=== PATIENT | female | born 1980 | race African-American/Black ===

== ENCOUNTER 2023-08-08 08:00 | Inpatient (IN) | payer OTHER ==
[2023-08-03 13:54] VITALS: BMI 34.1
[2023-09-05] MEDS ORDERED: VANCOMYCIN 1,000 MG VIAL (RESTRICTED TO ID ONLY) ONE ×2 (07:13→11:25)
[2023-09-05] MEDS ORDERED: THROMBIN (BOVINE) 5,000 UNIT VIAL TP ONE ×4 (07:14→11:45)
[2023-09-05] MEDS ORDERED: BUPIVACAINE HCL/PF 0.5% (5MG/ML) 10 ML VIAL ONE (07:14)
[2023-09-05] MEDS ORDERED: GENTAMICIN SO4 80 MG/2 ML VIAL ONE (07:14)
[2023-09-05] MEDS ORDERED: BUPIVACAINE LIPOSOME/PF (EXPAREL) 266 MG/20 ML VIAL ONE (07:14)
[2023-09-05] MEDS ORDERED: VANCOMYCIN 1 GM in D5W (PRE-DOCKED) 1,000 MG/250 ML (RESTRICTED TO ID ONLY IVPB ONE ×4 (07:22→13:24)
[2023-09-05] MEDS ORDERED: LIDOCAINE 1%/EPI 1:100000 (20 ML MULTI DOSE VIAL) IJ ONE ×2 (07:22→09:12)
[2023-09-05] MEDS ORDERED: ceFAZolin SODIUM 1 GM VIAL IVPB ONE ×3 (07:22→13:00)
[2023-09-05] MEDS ORDERED: MIDAZOLAM HCL 2 MG/2 ML SINGLE DOSE VIAL ONE (07:40)
[2023-09-05] MEDS ORDERED: FENTANYL CITRATE/PF 50 MCG/ML VIAL ONE (07:40)
[2023-09-05] MEDS ORDERED: PROPOFOL 20 ML ONE (07:40)
[2023-09-05] MEDS ORDERED: ROCURONIUM BROMIDE 50 MG/5 ML SYRINGE ONE ×3 (07:40→12:20)
[2023-09-05] MEDS ORDERED: SUCCINYLCHOLINE CHLORIDE 200 MG/10 ML SYRINGE ONE (07:40)
[2023-09-05] MEDS ORDERED: GENTAMICIN SO4 80 MG/2 ML VIAL IVPB ONE ×2 (07:56→10:00)
[2023-09-05] MEDS ORDERED: BENZOIN/ALOE VERA/STORAX/TOLU 58 ML BOTTLE ONE (08:56)
[2023-09-05] MEDS ORDERED: HYDROGEN PEROXIDE 473 ML PO ONE (10:00)
[2023-09-05] MEDS ORDERED: BUPIVACAINE LIPOSOME/PF (EXPAREL) 266 MG/20 ML VIAL NR ONE ×2 (11:07→13:30)
[2023-09-05] MEDS ORDERED: BUPIVACAINE HCL/PF 0.5% (5MG/ML) 10 ML VIAL IJ ONE ×2 (11:07→13:30)
[2023-09-05] MEDS ORDERED: PHENYLEPHRINE HCL 10 MG/1 ML SINGLE DOSE VIAL ONE (11:11)
[2023-09-05] MEDS ORDERED: KETOROLAC TROMETHAMINE 30 MG/1 ML VIAL ONE (11:25)
[2023-09-05] MEDS ORDERED: GLYCOPYRROLATE 0.2 MG/1 ML VIAL ONE ×2 (11:25)
[2023-09-05] MEDS ORDERED: NEOSTIGMINE METHYLSULFATE 0.5 MG/1 ML - 10 ML MDV ONE (11:25)
[2023-09-05] MEDS ORDERED: DEXAMETHASONE SOD PHOSPHATE 4 MG/1 ML VIAL ONE (11:25)
[2023-09-05] MEDS ORDERED: ONDANSETRON 4 MG/2 ML VIAL ONE (11:25)
[2023-09-05] MEDS ORDERED: TRANEXAMIC ACID 1000 MG/10 ML VIAL ONE (11:25)
[2023-09-05] MEDS ORDERED: ceFAZolin SODIUM 1 GM VIAL ONE ×2 (11:25)
[2023-09-05] MEDS ORDERED: ONDANSETRON 4 MG/2 ML VIAL IVPUSH PRN ×2 (14:39→14:52)
[2023-09-05] MEDS ORDERED: LACTATED RINGERS SOLUTION 1,000 ML/1,000 ML INFUS.BAG IV SCH ×2 (14:45→15:09)
[2023-09-05] MEDS ORDERED: oxyCODONE HCL 5 MG TABLET PO PRN (14:52)
[2023-09-05] MEDS: ACETAMINOPHEN 1000 MG/100 ML BAG IVPB SCH ×2 (15:31→21:20)
[2023-09-05] MEDS ORDERED: ACETAMINOPHEN INJECTION 100 ML IVPB ONE (16:28)
[2023-09-05 16:43] LABS: BASO % 0.1 % (0-2.0); EOS % 0.1 % (0-4.5); HEMOGLOBIN 10.6 GM/dL (10.7-15.3); MCH 23.5 pg (25.7-33.7); MCHC 33.2 g/dl (32.0-36.0); MEAN CELL VOLUME 70.6 fl (80-96); MEAN PLT VOLUME 8.2 fl (7.5-11.1); NEUT % 89.8 % (42.8-82.8); PLATELET COUNT 281 10^3/uL (134-434); RBC 4.53 M/mm3 (3.60-5.2); RDW 20.4 % (11.6-15.6); WHITE BLOOD COUNT 8.4 K/mm3 (4.0-10.0)
[2023-09-05 16:56] LABS: POTASSIUM 4.7 mmol/L (3.5-5.1)
[2023-09-05 16:57] LABS: CALCIUM 7.8 mg/dL (8.5-10.1)
[2023-09-05 16:58] LABS: BLOOD UREA NITROGEN 12.6 mg/dL (7-18)
[2023-09-05 17:01] LABS: CREATININE 1.1 mg/dL (0.55-1.3)
[2023-09-05] MEDS: diphenhydrAMINE HCL 25 MG CAPSULE (FP) PO PRN (18:28)
[2023-09-05] MEDS ORDERED: diphenhydrAMINE HCL 25 MG CAPSULE (FP) PO ONE (20:26)
[2023-09-05] MEDS ORDERED: METOCLOPRAMIDE HCL INJECTION 10 MG/2 ML VIAL IVPUSH ONE (20:39)
[2023-09-05] MEDS: HEPARIN NA (PORCINE) 5,000 UNITS/ML 1ML VIAL SQ SCH (22:33)
[2023-09-05] MEDS: CEFAZOLIN SODIUM 2 GM in DEXTROSE 5%-WATER - 50 ML IVPB SCH (22:33)
[2023-09-06] MEDS: ACETAMINOPHEN 1000 MG/100 ML BAG IVPB SCH ×2 (02:06→09:52)
[2023-09-06] MEDS: CEFAZOLIN SODIUM 2 GM in DEXTROSE 5%-WATER - 50 ML IVPB SCH ×3 (05:17→21:12)
[2023-09-06] MEDS: HEPARIN NA (PORCINE) 5,000 UNITS/ML 1ML VIAL SQ SCH ×3 (06:39→21:14)
[2023-09-06 07:04] LABS: HEMATOCRIT 30.2 % (32.4-45.2); HEMOGLOBIN 9.7 GM/dL (10.7-15.3); MCH 22.8 pg (25.7-33.7); MCHC 32.1 g/dl (32.0-36.0); MEAN CELL VOLUME 71.1 fl (80-96); MEAN PLT VOLUME 8.6 fl (7.5-11.1); PLATELET COUNT 216 10^3/uL (134-434); RBC 4.25 M/mm3 (3.60-5.2); RDW 20.4 % (11.6-15.6); WHITE BLOOD COUNT 9.6 K/mm3 (4.0-10.0)
[2023-09-06 07:23] LABS: POTASSIUM 4.2 mmol/L (3.5-5.1)
[2023-09-06 07:29] LABS: BLOOD UREA NITROGEN 12.7 mg/dL (7-18); CALCIUM 7.5 mg/dL (8.5-10.1)
[2023-09-06] MEDS: LACTATED RINGERS SOLUTION 1,000 ML/1,000 ML INFUS.BAG IV SCH (13:35)
[2023-09-06] MEDS: oxyCODONE HCL 5 MG TABLET PO PRN ×2 (16:18→21:13)
[2023-09-06] MEDS: ACETAMINOPHEN 500 MG TABLET (FP) PO SCH ×2 (17:20→21:13)
[2023-09-07] MEDS: oxyCODONE HCL 5 MG TABLET PO PRN ×4 (00:39→21:36)
[2023-09-07] MEDS: diphenhydrAMINE HCL 25 MG CAPSULE (FP) PO PRN (00:40)
[2023-09-07] MEDS: ACETAMINOPHEN 500 MG TABLET (FP) PO SCH ×5 (05:48→19:55)
[2023-09-07] MEDS: CEFAZOLIN SODIUM 2 GM in DEXTROSE 5%-WATER - 50 ML IVPB SCH ×3 (05:49→21:32)
[2023-09-07] MEDS: HEPARIN NA (PORCINE) 5,000 UNITS/ML 1ML VIAL SQ SCH ×3 (05:49→21:33)
[2023-09-07] MEDS ORDERED: HYDROmorphone HCl 2 MG/ML VIAL IVPUSH ONE (08:30)
[2023-09-07 10:00] LABS: BASO % 0.3 % (0-2.0); EOS % 0.1 % (0-4.5); HEMATOCRIT 27.2 % (32.4-45.2); HEMOGLOBIN 8.8 GM/dL (10.7-15.3); LYMPH % 12.2 % (8-40); MCHC 32.2 g/dl (32.0-36.0); MEAN CELL VOLUME 71.5 fl (80-96); MEAN PLT VOLUME 8.4 fl (7.5-11.1); MONO % 6.5 % (3.8-10.2); NEUT % 80.9 % (42.8-82.8); PLATELET COUNT 253 10^3/uL (134-434); RBC 3.81 M/mm3 (3.60-5.2); RDW 20.4 % (11.6-15.6); WHITE BLOOD COUNT 11.1 K/mm3 (4.0-10.0)
[2023-09-07 10:18] LABS: POTASSIUM 3.6 mmol/L (3.5-5.1)
[2023-09-07] MEDS: FERROUS SO4 325 MG TABLET (FP) PO SCH (10:19)
[2023-09-07] MEDS: FOLIC ACID 1 MG TABLET (FP) PO SCH (10:19)
[2023-09-07 10:20] LABS: ALBUMIN 2.6 g/dl (3.4-5.0); BLOOD UREA NITROGEN 10.5 mg/dL (7-18); CALCIUM 7.8 mg/dL (8.5-10.1)
[2023-09-07 10:23] LABS: CREATININE 0.8 mg/dL (0.55-1.3)
[2023-09-07] MEDS: amLODIPine BESYLATE 5 MG TABLET (FP) PO SCH (10:24)
[2023-09-07 10:25] LABS: BILIRUBIN,TOTAL 0.4 mg/dL (0.2-1); TOT PROT 6.4 g/dl (6.4-8.2)
[2023-09-07] MEDS: LACTATED RINGERS SOLUTION 1,000 ML/1,000 ML INFUS.BAG IV SCH (11:20)
[2023-09-07] MEDS ORDERED: HYDROmorphone HCl 2 MG/ML VIAL IVPB ONE (15:43)
[2023-09-07] MEDS ORDERED: GLYCERIN 1 RECTAL SUPPOSITORY, ADULT RC PRN (15:43)
[2023-09-07] MEDS: DOCUSATE SODIUM 100 MG CAPSULE (FP) PO PRN (16:58)
[2023-09-07] MEDS: BACLOFEN 10 MG TABLET (FP) PO PRN (16:58)
[2023-09-07] MEDS: POLYETHYLENE GLYCOL (HEALTHYLAX) 3350 17 GM PACKET PO SCH (21:32)
[2023-09-08] MEDS: ACETAMINOPHEN 500 MG TABLET (FP) PO SCH ×5 (01:25→17:49)
[2023-09-08] MEDS: BACLOFEN 10 MG TABLET (FP) PO PRN (01:45)
[2023-09-08] MEDS: oxyCODONE HCL 5 MG TABLET PO PRN ×3 (03:32→18:24)
[2023-09-08] MEDS: CEFAZOLIN SODIUM 2 GM in DEXTROSE 5%-WATER - 50 ML IVPB SCH ×3 (06:11→22:51)
[2023-09-08] MEDS: HEPARIN NA (PORCINE) 5,000 UNITS/ML 1ML VIAL SQ SCH ×3 (06:11→17:20)
[2023-09-08] MEDS: amLODIPine BESYLATE 5 MG TABLET (FP) PO SCH (10:52)
[2023-09-08] MEDS: FERROUS SO4 325 MG TABLET (FP) PO SCH (10:52)
[2023-09-08] MEDS: FOLIC ACID 1 MG TABLET (FP) PO SCH (10:52)
[2023-09-08] MEDS: POLYETHYLENE GLYCOL (HEALTHYLAX) 3350 17 GM PACKET PO SCH ×3 (10:52→22:52)
[2023-09-08] MEDS: LACTATED RINGERS SOLUTION 1,000 ML/1,000 ML INFUS.BAG IV SCH ×2 (12:18→17:32)
[2023-09-08] MEDS: DOCUSATE SODIUM 100 MG CAPSULE (FP) PO PRN (12:28)
[2023-09-08] MEDS: DOCUSATE SODIUM 100 MG CAPSULE (FP) PO SCH ×2 (14:43→22:52)
[2023-09-08] MEDS: SODIUM PHOSPHATE/NA BIPHOS 133 ML ENEMA RC PRN (15:30)
[2023-09-08 15:31] LABS: BASO % 0.5 % (0-2.0); EOS % 0.9 % (0-4.5); HEMOGLOBIN 10.3 GM/dL (10.7-15.3); LYMPH % 15.1 % (8-40); MCH 23.2 pg (25.7-33.7); MCHC 33.2 g/dl (32.0-36.0); MEAN CELL VOLUME 69.8 fl (80-96); MEAN PLT VOLUME 8.3 fl (7.5-11.1); NEUT % 76.5 % (42.8-82.8); PLATELET COUNT 350 10^3/uL (134-434); RBC 4.44 M/mm3 (3.60-5.2); RDW 20.4 % (11.6-15.6); WHITE BLOOD COUNT 11.9 K/mm3 (4.0-10.0)
[2023-09-08 16:00] LABS: POTASSIUM 3.5 mmol/L (3.5-5.1)
[2023-09-08 16:03] LABS: ALBUMIN 3.1 g/dl (3.4-5.0); BLOOD UREA NITROGEN 5.1 mg/dL (7-18)
[2023-09-08 16:06] LABS: CREATININE 0.7 mg/dL (0.55-1.3)
[2023-09-08 16:07] LABS: TOT PROT 7.8 g/dl (6.4-8.2)
[2023-09-08 16:08] LABS: BILIRUBIN,TOTAL 0.6 mg/dL (0.2-1)
[2023-09-08 16:11] LABS: CALCIUM 9.1 mg/dL (8.5-10.1)
[2023-09-08] MEDS ORDERED: diphenhydrAMINE HCL 25 MG CAPSULE (FP) PO PRN (16:51)
[2023-09-08] MEDS ORDERED: ONDANSETRON 4 MG/2 ML VIAL IVPUSH PRN (16:51)
[2023-09-08] MEDS ORDERED: GLYCERIN 1 RECTAL SUPPOSITORY, ADULT RC PRN (16:51)
[2023-09-09] MEDS: oxyCODONE HCL 5 MG TABLET PO PRN ×3 (00:34→17:10)
[2023-09-09] MEDS: ACETAMINOPHEN 500 MG TABLET (FP) PO SCH ×5 (00:36→21:57)
[2023-09-09] MEDS: HEPARIN NA (PORCINE) 5,000 UNITS/ML 1ML VIAL SQ SCH ×3 (01:23→17:45)
[2023-09-09] MEDS: CEFAZOLIN SODIUM 2 GM in DEXTROSE 5%-WATER - 50 ML IVPB SCH ×3 (05:49→21:57)
[2023-09-09] MEDS: DOCUSATE SODIUM 100 MG CAPSULE (FP) PO SCH ×3 (05:50→21:58)
[2023-09-09] MEDS: POLYETHYLENE GLYCOL (HEALTHYLAX) 3350 17 GM PACKET PO SCH ×3 (05:56→21:59)
[2023-09-09 10:13] LABS: BASO % 0.6 % (0-2.0); EOS % 2.1 % (0-4.5); HEMATOCRIT 29.9 % (32.4-45.2); HEMOGLOBIN 9.7 GM/dL (10.7-15.3); LYMPH % 24.4 % (8-40); MCHC 32.4 g/dl (32.0-36.0); MEAN CELL VOLUME 71.2 fl (80-96); MEAN PLT VOLUME 7.9 fl (7.5-11.1); MONO % 7.1 % (3.8-10.2); NEUT % 65.8 % (42.8-82.8); PLATELET COUNT 356 10^3/uL (134-434); RBC 4.21 M/mm3 (3.60-5.2); RDW 20.4 % (11.6-15.6); WHITE BLOOD COUNT 9.6 K/mm3 (4.0-10.0)
[2023-09-09] MEDS: FOLIC ACID 1 MG TABLET (FP) PO SCH (10:33)
[2023-09-09] MEDS: FERROUS SO4 325 MG TABLET (FP) PO SCH (10:33)
[2023-09-09] MEDS: amLODIPine BESYLATE 5 MG TABLET (FP) PO SCH (10:33)
[2023-09-09] MEDS: SIMETHICONE 80 MG TAB.CHEW (FP) PO PRN ×2 (14:39→17:11)
[2023-09-09] MEDS: LACTATED RINGERS SOLUTION 1,000 ML/1,000 ML INFUS.BAG IV SCH (17:28)
[2023-09-10] MEDS: oxyCODONE HCL 5 MG TABLET PO PRN ×4 (02:50→23:14)
[2023-09-10] MEDS: HEPARIN NA (PORCINE) 5,000 UNITS/ML 1ML VIAL SQ SCH ×3 (02:51→17:58)
[2023-09-10] MEDS: CEFAZOLIN SODIUM 2 GM in DEXTROSE 5%-WATER - 50 ML IVPB SCH ×3 (05:24→21:30)
[2023-09-10] MEDS: ACETAMINOPHEN 500 MG TABLET (FP) PO SCH ×3 (05:24→21:31)
[2023-09-10] MEDS: DOCUSATE SODIUM 100 MG CAPSULE (FP) PO SCH ×3 (05:26→21:31)
[2023-09-10] MEDS: POLYETHYLENE GLYCOL (HEALTHYLAX) 3350 17 GM PACKET PO SCH ×3 (05:26→21:31)
[2023-09-10] MEDS: amLODIPine BESYLATE 5 MG TABLET (FP) PO SCH (09:44)
[2023-09-10] MEDS: FOLIC ACID 1 MG TABLET (FP) PO SCH (09:44)
[2023-09-10] MEDS: FERROUS SO4 325 MG TABLET (FP) PO SCH (11:45)
[2023-09-10] MEDS ORDERED: ACETAMINOPHEN 1000 MG/100 ML BAG IVPB ONE (19:57)
[2023-09-11] MEDS: HEPARIN NA (PORCINE) 5,000 UNITS/ML 1ML VIAL SQ SCH ×3 (01:57→18:29)
[2023-09-11] MEDS: CEFAZOLIN SODIUM 2 GM in DEXTROSE 5%-WATER - 50 ML IVPB SCH ×2 (05:35→14:00)
[2023-09-11] MEDS: oxyCODONE HCL 5 MG TABLET PO PRN ×2 (05:35→16:27)
[2023-09-11] MEDS: POLYETHYLENE GLYCOL (HEALTHYLAX) 3350 17 GM PACKET PO SCH ×3 (05:37→21:51)
[2023-09-11] MEDS: DOCUSATE SODIUM 100 MG CAPSULE (FP) PO SCH ×3 (05:37→21:50)
[2023-09-11] MEDS ORDERED: MAGNESIUM HYDROX 2400MG/30ML ORAL SUSPENSION 30 ML CUP PO PRN (08:00)
[2023-09-11] MEDS: FOLIC ACID 1 MG TABLET (FP) PO SCH (09:37)
[2023-09-11] MEDS: amLODIPine BESYLATE 5 MG TABLET (FP) PO SCH (09:37)
[2023-09-11] MEDS: FERROUS SO4 325 MG TABLET (FP) PO SCH (09:41)
[2023-09-11] MEDS ORDERED: METHYLNALTREXONE BROMIDE 8 MG/0.4 ML SYRINGE SQ ONE (10:00)
[2023-09-11] MEDS: SODIUM PHOSPHATE/NA BIPHOS 133 ML ENEMA RC PRN (13:59)
[2023-09-11] MEDS: SIMETHICONE 80 MG TAB.CHEW (FP) PO PRN (14:12)
[2023-09-11] MEDS: BACLOFEN 10 MG TABLET (FP) PO PRN ×2 (16:27→21:50)
[2023-09-11] MEDS: ACETAMINOPHEN 500 MG TABLET (FP) PO SCH (19:32)
[2023-09-12] MEDS: HEPARIN NA (PORCINE) 5,000 UNITS/ML 1ML VIAL SQ SCH ×3 (01:55→18:45)
[2023-09-12] MEDS: POLYETHYLENE GLYCOL (HEALTHYLAX) 3350 17 GM PACKET PO SCH ×4 (05:53→21:47)
[2023-09-12] MEDS: DOCUSATE SODIUM 100 MG CAPSULE (FP) PO SCH ×3 (05:53→21:47)
[2023-09-12] MEDS: oxyCODONE HCL 5 MG TABLET PO PRN (09:33)
[2023-09-12] MEDS: FOLIC ACID 1 MG TABLET (FP) PO SCH (09:34)
[2023-09-12] MEDS: FERROUS SO4 325 MG TABLET (FP) PO SCH ×2 (09:34→09:38)
[2023-09-12] MEDS: amLODIPine BESYLATE 5 MG TABLET (FP) PO SCH (09:34)
[2023-09-12] MEDS: Methylnaltrexone Bromide 12 MG/0.6 ML KIT SQ SCH (09:34)
[2023-09-12 10:05] LABS: HEMATOCRIT 29.9 % (32.4-45.2); HEMOGLOBIN 9.9 GM/dL (10.7-15.3); MCH 23.6 pg (25.7-33.7); MEAN CELL VOLUME 71.5 fl (80-96); MEAN PLT VOLUME 7.5 fl (7.5-11.1); PLATELET COUNT 495 10^3/uL (134-434); RBC 4.18 M/mm3 (3.60-5.2); RDW 19.8 % (11.6-15.6); WHITE BLOOD COUNT 9.8 K/mm3 (4.0-10.0)
[2023-09-12 10:29] LABS: POTASSIUM 3.9 mmol/L (3.5-5.1)
[2023-09-12 10:33] LABS: CALCIUM 8.9 mg/dL (8.5-10.1)
[2023-09-12 10:34] LABS: ALBUMIN 2.9 g/dl (3.4-5.0); BLOOD UREA NITROGEN 9.3 mg/dL (7-18); MAGNESIUM 2.2 mg/dL (1.8-2.4)
[2023-09-12 10:37] LABS: CREATININE 0.8 mg/dL (0.55-1.3)
[2023-09-12 10:38] LABS: BILIRUBIN,TOTAL 0.4 mg/dL (0.2-1); TOT PROT 7.5 g/dl (6.4-8.2)
[2023-09-12] MEDS: BACLOFEN 10 MG TABLET (FP) PO PRN (13:28)
[2023-09-13] MEDS: oxyCODONE HCL 5 MG TABLET PO PRN ×3 (00:50→21:30)
[2023-09-13] MEDS: HEPARIN NA (PORCINE) 5,000 UNITS/ML 1ML VIAL SQ SCH ×3 (01:35→18:27)
[2023-09-13] MEDS: POLYETHYLENE GLYCOL (HEALTHYLAX) 3350 17 GM PACKET PO SCH ×4 (05:46→22:33)
[2023-09-13] MEDS: DOCUSATE SODIUM 100 MG CAPSULE (FP) PO SCH ×3 (05:46→22:33)
[2023-09-13] MEDS: amLODIPine BESYLATE 5 MG TABLET (FP) PO SCH (09:48)
[2023-09-13] MEDS: FERROUS SO4 325 MG TABLET (FP) PO SCH (09:48)
[2023-09-13] MEDS: FOLIC ACID 1 MG TABLET (FP) PO SCH (09:48)
[2023-09-13] MEDS: Methylnaltrexone Bromide 12 MG/0.6 ML KIT SQ SCH (09:49)
[2023-09-13 22:56] VITALS: RESP 20
[2023-09-14] MEDS: HEPARIN NA (PORCINE) 5,000 UNITS/ML 1ML VIAL SQ SCH ×2 (02:53→09:16)
[2023-09-14] MEDS: oxyCODONE HCL 5 MG TABLET PO PRN (04:24)
[2023-09-14] MEDS: BACLOFEN 10 MG TABLET (FP) PO PRN (04:28)
[2023-09-14] MEDS: DOCUSATE SODIUM 100 MG CAPSULE (FP) PO SCH (05:44)
[2023-09-14] MEDS: POLYETHYLENE GLYCOL (HEALTHYLAX) 3350 17 GM PACKET PO SCH (05:45)
[2023-09-14] MEDS: Methylnaltrexone Bromide 12 MG/0.6 ML KIT SQ SCH (09:12)
[2023-09-14] MEDS: FERROUS SO4 325 MG TABLET (FP) PO SCH (09:12)
[2023-09-14] MEDS: amLODIPine BESYLATE 5 MG TABLET (FP) PO SCH (09:16)
[2023-09-14] MEDS: FOLIC ACID 1 MG TABLET (FP) PO SCH (09:16)
[2023-09-14 10:35] VITALS: BP 138/85; PULSE 101; TEMP 97.8
== END 2023-09-14 10:42 | DRG 304 ==
LOC: J2C 09-05 07:09 → J4W 09-05 18:16 → J8W 09-08 16:30
PROVIDERS: ADMIT Family Medicine; ATTEND Family Medicine
PROC: 0SG10AJ Fusion of 2 or more Lumbar Vertebral Joints with Interbody Fusion Device, Posterior Approach, Anterior Column, Open Approach (ICD-10-PCS; principal; 2023-09-07)
PROC: 0SG1071 Fusion of 2 or more Lumbar Vertebral Joints with Autologous Tissue Substitute, Posterior Approach, Posterior Column, Open Approach (ICD-10-PCS; 2023-09-07)
PROC: 0ST20ZZ Resection of Lumbar Vertebral Disc, Open Approach (ICD-10-PCS; 2023-09-07)
PROC: 0SG30AJ Fusion of Lumbosacral Joint with Interbody Fusion Device, Posterior Approach, Anterior Column, Open Approach (ICD-10-PCS; 2023-09-07)
PROC: 0SG3071 Fusion of Lumbosacral Joint with Autologous Tissue Substitute, Posterior Approach, Posterior Column, Open Approach (ICD-10-PCS; 2023-09-07)
PROC: 0ST40ZZ Resection of Lumbosacral Disc, Open Approach (ICD-10-PCS; 2023-09-07)
PROC: 4A10X4G Monitoring of Central Nervous Electrical Activity, Intraoperative, External Approach (ICD-10-PCS; 2023-09-07)
DX: M51.36 Other intervertebral disc degeneration, lumbar region (principal); M51.37 Other intervertebral disc degeneration, lumbosacral region; I10 Essential (primary) hypertension
CPT/HCPCS: 36415; 36430; 72131-TC; 76000-TC-FY; 80048; 80053; 81025; 82962; 83735; 85025; 85027; 86850; 86900; 86901; 86922; 87635; 93971-TC; 94760; 97116-GP; 97162-GP; C1713; C1889; J0475; J1644; P9058

== ENCOUNTER 2024-06-09 17:23 | Emergency (ER) | payer OTHER ==
[2024-06-09 17:41] VITALS: BMI 36.6
[2024-06-09] MEDS ORDERED: MIDAZOLAM HCL 2 MG/2 ML SINGLE DOSE VIAL IVPUSH ONE (17:48)
[2024-06-09] MEDS ORDERED: METOCLOPRAMIDE HCL 10 MG TABLET (FP) PO ONE (18:46)
[2024-06-09] MEDS ORDERED: ACETAMINOPHEN INJECTION 100 ML IVPB ONE (18:46)
[2024-06-09] MEDS ORDERED: METOCLOPRAMIDE HCL INJECTION 10 MG/2 ML VIAL ONE (18:47)
[2024-06-09] MEDS: ACETAMINOPHEN 1000 MG/100 ML BAG IVPB ONE (19:00)
[2024-06-09] MEDS: METOCLOPRAMIDE HCL INJECTION 10 MG/2 ML VIAL IVPB ONE (19:01)
[2024-06-09 19:02] LABS: BASO % 0.6 % (0-2.0); EOS % 1.7 % (0-4.5); HEMATOCRIT 33.8 % (32.4-45.2); HEMOGLOBIN 10.7 GM/dL (10.7-15.3); LYMPH % 25.5 % (8-40); MCH 20.1 pg (25.7-33.7); MCHC 31.6 g/dl (32.0-36.0); MEAN CELL VOLUME 63.7 fl (80-96); MEAN PLT VOLUME 8.5 fl (7.5-11.1); NEUT % 63.2 % (42.8-82.8); PLATELET COUNT 362 10^3/uL (134-434); RBC 5.32 M/mm3 (3.60-5.2); RDW 20.4 % (11.6-15.6); WHITE BLOOD COUNT 7.8 K/mm3 (4.0-10.0)
[2024-06-09] MEDS: SODIUM CHLORIDE 0.9% 500 ML INFUS.BAG IV ONE (19:05)
[2024-06-09 19:24] LABS: CALCIUM 8.9 mg/dL (8.5-10.1); POTASSIUM 4.8 mmol/L (3.5-5.1)
[2024-06-09 19:25] LABS: ALBUMIN 3.4 g/dl (3.4-5.0); BLOOD UREA NITROGEN 16.5 mg/dL (7-18)
[2024-06-09 19:28] LABS: CREATININE 0.9 mg/dL (0.55-1.3)
[2024-06-09 19:29] LABS: TOT PROT 7.7 g/dl (6.4-8.2)
[2024-06-09 19:30] LABS: BILIRUBIN,TOTAL 0.3 mg/dL (0.2-1)
[2024-06-09] MEDS: LIDOCAINE HCL 1%, 10 MG/ML (50 mL VIAL) SQ ONE (19:41)
[2024-06-09] MEDS ORDERED: PROCHLORPERAZINE INJECTION 10 MG/2 ML VIAL ONE (19:46)
[2024-06-09] MEDS: PROCHLORPERAZINE INJECTION 10 MG/2 ML VIAL IVPB ONE (20:22)
[2024-06-09] MEDS: KETOROLAC TROMETHAMINE 30 MG/1 ML VIAL IVPUSH ONE (21:58)
[2024-06-09] MEDS ORDERED: KETOROLAC TROMETHAMINE 30 MG/1 ML VIAL ONE (21:59)
[2024-06-09 22:09] VITALS: BP 135/80; PULSE 61; RESP 18; TEMP 98.2
== END 2024-06-09 22:10 | disposition home or self-care (01) ==
LOC: JER 17:23
PROC: 3E033NZ Introduction of Analgesics, Hypnotics, Sedatives into Peripheral Vein, Percutaneous Approach (ICD-10-PCS; principal; 2024-06-09)
PROC: 3E0333Z Introduction of Anti-inflammatory into Peripheral Vein, Percutaneous Approach (ICD-10-PCS; 2024-06-09)
PROC: 3E033GC Introduction of Other Therapeutic Substance into Peripheral Vein, Percutaneous Approach (ICD-10-PCS; 2024-06-09)
PROC: 3E033GC Introduction of Other Therapeutic Substance into Peripheral Vein, Percutaneous Approach (ICD-10-PCS; 2024-06-09)
DX: G43.909 Migraine, unspecified, not intractable, without status migrainosus (principal); R11.0 Nausea; H53.2 Diplopia; R26.81 Unsteadiness on feet
CPT/HCPCS: 36415; 70450-TC; 70496-TC; 70498-TC; 80053; 84443; 84484; 84703; 85025; 93005; 93010; 99285-25; J0131